=== PATIENT | female | born 1995 | race Caucasian/White ===

== ENCOUNTER 2019-07-11 19:20 | Emergency (ER) | payer OTHER ==
[2019-07-11 19:49] VITALS: BP 132/86; PULSE 104; TEMP 98; BMI 25.6
--- NOTE | 2019-07-11 19:51 | PDOC ---
Documentation entered by Kim Mojica SCRIBE, acting as scribe for Ray Snyder MD. Ray Snyder MD: This documentation has been prepared by the Yunior casanova Aiswarya, SCRIBE, under my direction and personally reviewed by me in its entirety. I confirm that the documentation accurately reflects all work, treatment, procedures, and medical decision making performed by me. History of Present Illness - General Chief Complaint: Urinary Problem Stated Complaint: UTI Time Seen by Provider: 07/11/19 19:30 History Source: Patient Exam Limitations: No Limitations - History of Present Illness Initial Comments: 07/11/19 19:50 This is a sexually active 24-year-old female who comes in complaining of urinary frequency and burning on urination. Patient is sexually active without protection. Patient is currently menstruating. Patient otherwise denies any pelvic pain back pain or any other complaints other than the burning on urination. Patient denies any fevers, chills nausea vomiting or low back pain. Urinalysis, urine culture and urine were sent Patient's test was negative her urinalysis did show some blood but otherwise no leukocytes or bacteria. Patient reassured that she did not have a urinary tract infection and recommended that if she continues to have symptoms that she follow-up with her OB for further evaluation. 07/11/19 20:27 The patient is a 24 year old female, with no significant PMH, who presents to the emergency department with urinary frequency and burning on urination that began 1 week ago. The patient mentions she is sexually active and does not use protection. She also notices vaginal discharge has increased more than usual and is currently menstruating. The patient denies any back pain chest pain, shortness of breath, headache and dizziness. Denies fever, chills, nausea, vomit, diarrhea and constipation. Denies urgency and hematuria. Denies UTI episode in the past. PAST MEDICAL HISTORY: no significant history PAST SURGICAL HISTORY: no significant history FAMILY HISTORY: no pertinent history SOCIAL HISTORY: current everyday smoker and drinks alcohol occasionally MEDICATIONS: reviewed ALLERGIES: As per nursing notes Adult ROS General: No fevers or chills, no weakness, no weight loss HEENT: No change in vision. No sore throat,. No ear pain CardioVascular: No chest pain or shortness of breath Respiratory:No cough, or wheezing. Gastrointestinal: no nausea, vomiting, diarrhea or constipation, No rectal bleeding Genitourinary:+urinary burning and frequency. No hematuria. Musculoskeletal: No joint or muscle pain or swelling Psychiatric: nor depression Skin: No rashes or easy bruising All other systems reviewed and normal Basic PE GENERAL: The patient is awake, alert, and fully oriented, in no acute distress. HEAD: Normal with no signs of trauma. EYES: Pupils equal, round and reactive to light, extraocular movements intact, sclera anicteric, conjunctiva clear. EXTREMITIES: No CVA tenderness. Normal range of motion, no edema. NEUROLOGICAL: Normal speech. PSYCH: Normal mood, normal affect. SKIN: Warm, Dry, normal turgor, no rashes or lesions noted. 07/11/19 20:51 Past History - Past Medical History Allergies/Adverse Reactions: Allergies Allergy/AdvReac Type Severity Reaction Status Date / Time mushroom Allergy Verified 08/06/16 09:48 No Known Drug Allergies Allergy Verified 08/06/16 09:48 Home Medications: Ambulatory Orders Vit/Iron Fum/Folic AC [ Tablet] 1 each PO DAILY 03/19/16 Nitrofurantoin Monohyd/M-Cryst [Nitrofurantoin Glades-Mcr 100 mg] 100 mg PO DAILY 08/06/16 Ibuprofen [Motrin -] 600 mg PO QID #28 tablet 08/11/16 Asthma: No Cancer: No Cardiac Disorders: No COPD: No Diabetes: No HTN: No Seizures: No Thyroid Disease: No - Reproductive History (#): 1 Para: 0 Cervical CA: No Dysfunctional Uterine Bleeding: No Ectopic : No Endometrial CA: No Polycystic Ovaries: No Therapeutic (s) & number: No Tubal Ligation: No Spontaneous : 0 - Psycho Social/Smoking Cessation Hx Smoking History: Current every day smoker Have you smoked in the past 12 months: Yes Number of Cigarettes Smoked Daily: 2 Information on smoking cessation initiated: Yes Hx Alcohol Use: Yes (OCCASIONAL) Drug/Substance Use Hx: No Hx Substance Use Treatment: No *Physical Exam - Vital Signs Last Vital Signs Temp Pulse Resp BP Pulse Ox 98.0 F 104 H 16 132/86 99 07/11/19 19:30 07/11/19 19:30 07/11/19 19:30 07/11/19 19:30 07/11/19 19:30 ED Treatment Course - ADDITIONAL ORDERS Additional order review: Laboratory Results 07/11/19 19:35 Urine Color Yellow Urine Appearance Clear Urine pH 5.5 Urine Protein Negative Urine Glucose (UA) Negative Urine Ketones Negative Urine Blood 3+ H Urine Nitrite Negative Urine Bilirubin Negative Urine Urobilinogen 0.2 Ur Leukocyte Esterase Negative Discharge - Discharge Information Problems reviewed: Yes Clinical Impression/Diagnosis: Dysuria Condition: Good Disposition: HOME - Admission No - Follow up/Referral - Patient Discharge Instructions Additional Instructions: Follow-up with your SYSTEMS TEST ANALYST once your menstrual cycle is finished for evaluation if you still have any burning on urination. Return to the emergency department immediately with ANY new, persistent or worsening symptoms. Continue any medications as previously prescribed by your physician. You should follow up with your primary doctor as soon as possible regarding today's emergency department visit. . Please make sure your doctor reviews the results of your emergency evaluation. Thank you for coming to the Emergency Department today for your care. It was a pleasure to see you today. Please note that your evaluation is INCOMPLETE until you follow-up with your doctor. - Post Discharge Activity
[2019-07-11 22:06] LABS: EPITHELIAL CELLS FEW /hpf
== END 2019-07-11 21:23 | disposition home or self-care (01) ==
LOC: FER 19:20
DX: R30.0 Dysuria (principal); Z91.018 Allergy to other foods
CPT/HCPCS: 81003; 81015; 84703; 87086; 99282-25

== ENCOUNTER 2019-09-11 18:39 | Emergency (ER) | payer SELFPAY ==
--- NOTE | 2019-09-11 18:49 | PDOC ---
Rapid Medical Evaluation Time Seen by Provider: 09/11/19 18:48 Medical Evaluation: Allergies Allergy/AdvReac Type Severity Reaction Status Date / Time mushroom Allergy Verified 09/11/19 18:48 No Known Drug Allergies Allergy Verified 09/11/19 18:48 09/11/19 18:48 HPI:Concern for STD after unprotected sex 1 week ago no symptoms PE: No gross deficits ORDERS:Labs Discharge Disposition - Diagnosis Concern about STD in female without diagnosis - Referrals - Patient Instructions - Post Discharge Activity
[2019-09-11 18:51] VITALS: BP 135/58; PULSE 81; TEMP 98; BMI 23.8
--- NOTE | 2019-09-11 19:44 | PDOC ---
History of Present Illness - General Chief Complaint: HIV Testing Stated Complaint: SICK Time Seen by Provider: 09/11/19 18:48 History Source: Patient - History of Present Illness Initial Comments: 09/11/19 19:54 Chief complaint: STD evaluation Patient is a healthy 24-year-old female, who was told by her boyfriend to come get tested for STDs. She states he told her that he had gonorrhea. Patien t feels well, no fever, no complaints, no pain but she does state that she has a little bit of discharge, yellowish. Patient has never had STD before. GENERAL/CONSTITUTIONAL: No fever, weakness. dizziness HEAD, EYES, EARS, NOSE AND THROAT: No change in vision. No ear pain or discharge. No sore throat. CARDIOVASCULAR: No chest pain RESPIRATORY: No shortness of breath or cough GASTROINTESTINAL: No pain, nausea, vomiting, diarrhea or constipation GENITOURINARY: No dysuria, + vaginal discharge MUSCULOSKELETAL: No neck or back pain SKIN: No rash NEUROLOGIC: No headache, vertigo, loss of consciousness, or loss of sensation. GENERAL: The patient is awake, alert, and fully oriented, in no acute distress. HEAD: Normal with no signs of trauma. EYES: Pupils equal, round and reactive to light, sclera anicteric, conjunctiva clear. ENT: pharynx: no erythema, no exudate, uvula midline NECK: supple CHEST: clear, nontender, rr ABD: soft, nontender BACK: no tenderness or signs of injury EXTREMITIES: Normal range of motion, no edema. NEUROLOGICAL: Normal speech, normal gait. SKIN: Warm, Dry Past History - Past Medical History Allergies/Adverse Reactions: Allergies Allergy/AdvReac Type Severity Reaction Status Date / Time mushroom Allergy Verified 09/11/19 18:48 No Known Drug Allergies Allergy Verified 09/11/19 18:48 Home Medications: Ambulatory Orders NK [No Known Home Medication] 07/11/19 Asthma: No Cancer: No Cardiac Disorders: No COPD: No Diabetes: No HTN: No Seizures: No Thyroid Disease: No - Reproductive History (#): 1 Para: 0 Cervical CA: No Dysfunctional Uterine Bleeding: No Ectopic : No Endometrial CA: No Polycystic Ovaries: No Therapeutic (s) & number: No Tubal Ligation: No Spontaneous : 0 - Psycho Social/Smoking Cessation Hx Smoking History: Current every day smoker Have you smoked in the past 12 months: Yes Number of Cigarettes Smoked Daily: 2 Information on smoking cessation initiated: No 'Breaking Loose' booklet given: 07/11/19 Hx Alcohol Use: No Drug/Substance Use Hx: No Hx Substance Use Treatment: No *Physical Exam - Vital Signs Last Vital Signs Temp Pulse Resp BP Pulse Ox 98 F 81 18 135/58 L 98 09/11/19 18:48 09/11/19 18:48 09/11/19 18:48 09/11/19 18:48 09/11/19 18:48 Medical Decision Making - Medical Decision Making 09/11/19 20:00 24-year-old female, who has her period now, who is here for STD evaluation, HIV testing. Boyfriend told her that he has gonorrhea. Patient has no pelvic pain or fever. Patient will get STD screening but we will treat with Rocephin and Zithromax. Patient will get HIV test and we will do test. She does not use control. 09/11/19 22:22 HIV test is delayed, will treat patient for STDs, and will call her tomorrow with results phone number is [phone] 09/12/19 14:39 called pt with results of hiv test Discharge - Discharge Information Problems reviewed: Yes Clinical Impression/Diagnosis: Concern about STD in female without diagnosis Condition: Stable Disposition: HOME - Admission No - Follow up/Referral - Patient Discharge Instructions Additional Instructions: Call me in the morning after 11:00 at [phone] for your results You can follow-up at the [facility]HIV clinics - Post Discharge Activity
[2019-09-11] MEDS ORDERED: AZITHROMYCIN 500 MG TABLET PO ONE (22:04)
[2019-09-11] MEDS ORDERED: AZITHROMYCIN 250 MG TABLET ONE (22:23)
== END 2019-09-11 22:31 | disposition home or self-care (01) ==
LOC: JERFT 18:39
DX: Z11.3 Encounter for screening for infections with a predominantly sexual mode of transmission (principal); Z11.4 Encounter for screening for human immunodeficiency virus [HIV]; Z91.018 Allergy to other foods
CPT/HCPCS: 36415; 84703; 86593; 87389; 87491; 87591; 99283-25

== ENCOUNTER 2024-02-14 18:48 | Emergency (ER) | payer OTHER ==
[2024-02-14 18:55] VITALS: BP 116/79; PULSE 89; RESP 18; TEMP 98.5; BMI 23.0
[2024-02-14 20:27] LABS: EPI CELLS 36 /uL (0-25.1); HYALINE CASTS 2 /uL (0-3.1); PH,URINE 6.5 (5.0-8.0); URINE APPEARANCE CLOUDY; URINE BILIRUBIN NEGATIVE (NEGATIVE); URINE COLOR ORANGE; URINE GLUCOSE (UA) NEGATIVE (NEGATIVE); URINE KETONE 1+ (NEGATIVE); URINE LEUK ESTERASE TRACE (NEGATIVE); URINE NITRITE POSITIVE (NEGATIVE); URINE PROTEIN 1+ (NEGATIVE); URINE RBC 154 /uL (0-23.9); URINE WBC 61 /uL (0-25.8)
[2024-02-14 20:30] LABS: HCG,QUALITATIVE URINE Negative
[2024-02-14] MEDS ORDERED: IBUPROFEN 400 MG TABLET (FP) PO ONE (21:13)
[2024-02-14] MEDS ORDERED: ACETAMINOPHEN 500 MG TABLET (FP) ONE (21:14)
[2024-02-14] MEDS ORDERED: SULFAMETHOXAZOLE/TRIMETHOPRIM 800MG/160MG D.S. TABLET ONE (21:14)
[2024-02-14] MEDS: SULFAMETHOXAZOLE/TRIMETHOPRIM 800MG/160MG D.S. TABLET PO ONE (21:17)
[2024-02-14] MEDS: IBUPROFEN 400 MG TABLET (FP) PO ONE (21:17)
[2024-02-14] MEDS: ACETAMINOPHEN 500 MG TABLET (FP) PO ONE (21:18)
== END 2024-02-14 21:39 | disposition home or self-care (01) ==
LOC: JER 18:48 → JERFT 18:48
DX: R10.31 Right lower quadrant pain (principal); R30.0 Dysuria; R11.10 Vomiting, unspecified; N30.00 Acute cystitis without hematuria
CPT/HCPCS: 81003; 84703; 87086; 87186; 99283-25